=== PATIENT | female | born 1985 | race African-American/Black ===

== ENCOUNTER 2017-01-20 17:14 | Emergency (ER) | payer OTHER ==
[~2017-01-20] VITALS: Ht 167.6 cm; Wt 113.4 kg
[2017-01-20] MEDS ORDERED: IV NORMAL SALINE 1000ML BAG 1,000 ML IV ONE (18:00)
[2017-01-20 18:12] LABS: BASO % 0 % (0-3); EOS % 0 % (0-3); HEMATOCRIT 36.1 % (36.0-47.0); HEMOGLOBIN 11.8 g/dL (12.0-15.5); LYMPH # 1.1 x10^3/uL (1.0-4.8); LYMPH % 11 % (24-48); MEAN CORPUSCULAR HEMOGLOBIN 27 pg (25-35); MEAN CORPUSCULAR HGB CONC 33 g/dL (31-37); MEAN CORPUSCULAR VOLUME 81 fL (79-100); MONO % 7 % (0-9); NEUT % 82 % (31-73); PLATELET COUNT 189 x10^3/uL (140-400); RED BLOOD COUNT 4.45 x10^6/uL (3.50-5.40); RED CELL DISTRIBUTION WIDTH 14.4 % (11.5-14.5); WHITE BLOOD COUNT 10.4 x10^3/uL (4.0-11.0)
[2017-01-20 18:24] LABS: CALCIUM 9.3 mg/dL (8.5-10.1); CREATININE 0.9 mg/dL (0.6-1.0); GFR 97.6; POTASSIUM 3.6 mmol/L (3.5-5.1)
[2017-01-20] MEDS ORDERED: KETOROLAC 30 MG/ML INJ. IV ONE (18:30)
--- NOTE | 2017-01-20 19:23 | RAD ---
Pelvic ultrasound Clinical Indication:PELVIC PAIN BLEEDING AFTER TAKING 01-09-17, PT STATE SHE WAS [address] . TRANSABDOMINAL SCAN Uterus measures about 9.9 cm longitudinal by 4.6 cm AP by 6.5 cm wide. Right and left ovaries are not visualized. TRANSVAGINAL SCAN Uterus: 10.1 cm longitudinal by 4.8 cm AP by 5.6 cm wide. Endometrial stripe measures 17 mm in thickness. The endometrium is diffusely echogenic. Right ovary: 4.0 cm long axis with positive blood flow. Left ovary: Not visualized. Free fluid: None visualized. IMPRESSION: 1. Mild echogenic thickening of the endometrium. This could indicate endometrial hemorrhage or endometritis. Endometrial mass is difficult to exclude. Therefore, consider short-term follow-up sonography depending on clinical management. 2. Nonvisualized left ovary. Electronically signed by: Serge Vázquez MD (01/20/2017 7:19 PM) [id number]
--- NOTE | 2017-01-20 20:56 | PHYS DOC ---
Past Medical History Past Medical History: No Pertinent History Past Surgical History: No Surgical History Alcohol Use: None Drug Use: Marijuana Adult General Chief Complaint Chief Complaint: PELVIC PAIN HPI HPI Patient is a 21 year old female who drove herself to the ED. Patient states that on January 09 she was seen at [facility] for a medical . She was told that she was 9 weeks. She was given the " pill" on the and then took the 4 pills as instructed on the . That evening, she started bleeding. She has been bleeding since January 10. Her bleeding has been heavier than a period. She's had pelvic pain and cramping during this time. No fever or chills. She feels weak and lightheaded. This was her first . Review of Systems Review of Systems Constitutional: Denies fever or chills , complains of weakness/lightheadedness GI: Positive nausea, negative vomiting : As in history of present illness Current Medications Current Medications Current Medications Medications (Trade) Dose Ordered Sig/Simón Start Time Stop Time Status Last Admin Dose Admin Azithromycin 250 ml @ 250 mls/hr 1X ONCE 01/20/17 21:00 01/20/17 21:59 01/20/17 21:05 250 MLS/HR Ceftriaxone Sodium 50 ml @ 100 mls/hr 1X ONCE 01/20/17 20:30 01/20/17 20:59 DC 01/20/17 20:36 100 MLS/HR Ketorolac Tromethamine (Toradol) 30 mg 1X ONCE 01/20/17 18:30 01/20/17 18:31 DC 01/20/17 18:29 30 MG Sodium Chloride 1,000 ml @ 1,000 mls/hr 1X ONCE 01/20/17 18:00 01/20/17 18:59 DC 01/20/17 18:28 1,000 MLS/HR Allergies Allergies Allergies Coded Allergies Type Severity Reaction Last Updated Verified No Known Drug Allergies 01/20/17 No Physical Exam Physical Exam Constitutional: Well developed, well nourished, no acute distress, non-toxic appearance. Alert, mentating normally, warm and dry, not tachycardic. HENT: Normocephalic, atraumatic, bilateral external ears normal, nose normal. [ ] Eyes: conjunctiva normal, no discharge. [] Neck: Normal range of motion, no stridor. [] Abdomen: Obese, Bowel sounds normal, soft, nondistended, no masses, no pulsatile masses. Tender to palpation across the lower abdomen and suprapubic. Pelvic Exam: External genitalia normal with blood present. Vaginal vault with moderate amount of blood. Cervix appears normal. Blood at the os. Bimanual with positive cervical motion tenderness. Uterus is tender to palpation. No adnexal tenderness or masses. Skin: Warm, dry, no erythema, no rash. [] Extremities: No tenderness, no cyanosis, no clubbing, ROM intact, no edema. [] Neurologic: Alert and oriented X 3, normal motor function, no focal deficits noted. [] Current Patient Data Vital Signs Vital Signs Date Time Temp Pulse Resp B/P (MAP) Pulse Ox O2 Delivery O2 Flow Rate FiO2 01/20/17 20:59 64 20 138/85 (102) 100 Room Air 01/20/17 17:15 98.4 98.4 Lab Values Laboratory Tests Test 01/20/17 16:35 01/20/17 17:40 POC Urine HCG, Qualitative Hcg positive (Negative) White Blood Count 10.4 x10^3/uL (4.0-11.0) Red Blood Count 4.45 x10^6/uL (3.50-5.40) Hemoglobin 11.8 g/dL (12.0-15.5) L Hematocrit 36.1 % (36.0-47.0) Mean Corpuscular Volume 81 fL (79-100) Mean Corpuscular Hemoglobin 27 pg (25-35) Mean Corpuscular Hemoglobin Concent 33 g/dL (31-37) Red Cell Distribution Width 14.4 % (11.5-14.5) Platelet Count 189 x10^3/uL (140-400) Neutrophils (%) (Auto) 82 % (31-73) H Lymphocytes (%) (Auto) 11 % (24-48) L Monocytes (%) (Auto) 7 % (0-9) Eosinophils (%) (Auto) 0 % (0-3) Basophils (%) (Auto) 0 % (0-3) Neutrophils # (Auto) 8.6 x10^3uL (1.8-7.7) H Lymphocytes # (Auto) 1.1 x10^3/uL (1.0-4.8) Monocytes # (Auto) 0.8 x10^3/uL (0.0-1.1) Eosinophils # (Auto) 0.0 x10^3/uL (0.0-0.7) Basophils # (Auto) 0.0 x10^3/uL (0.0-0.2) Sodium Level 142 mmol/L (136-145) Potassium Level 3.6 mmol/L (3.5-5.1) Chloride Level 106 mmol/L (98-107) Carbon Dioxide Level 27 mmol/L (21-32) Anion Gap 9 (6-14) Blood Urea Nitrogen 7 mg/dL (7-20) Creatinine 0.9 mg/dL (0.6-1.0) Estimated GFR (Cockcroft-Gault) 97.6 Glucose Level 84 mg/dL (70-99) Calcium Level 9.3 mg/dL (8.5-10.1) Laboratory Tests 01/20/17 17:40 Laboratory Tests 01/20/17 17:40 EKG EKG [] Radiology/Procedures Radiology/Procedures Pelvic ultrasound read by the radiologist. No IUP seen. Mild echogenic thickening of the endometrium.[] Course & Med Decision Making Course & Med Decision Making Pertinent Labs and Imaging studies reviewed. (See chart for details) 21-year-old female who underwent a "medical " on January 09 and is continuing to have moderately heavy bleeding. Today, she is not tachycardic. She is not toxic in appearance. She is not anemic. No leukocytosis. Pelvic ultrasound is nonspecific and does not show IUP. Pelvic exam showing cervical motion tenderness and uterus tenderness. I believe the patient likely has completed her but may have some endometritis causing some continued bleeding and pain. I discussed the case with Dr. Newman, SALES ACCOUNT DIRECTOR information systems security developer, who agrees with the plan. I gave the patient a dose of IV Rocephin and IV azithromycin. See instructions for plan. [] Dragon Disclaimer Dragon Disclaimer This electronic medical record was generated, in whole or in part, using a voice recognition dictation system. Departure Departure Impression: Primary Impression: Vaginal bleeding, abnormal Disposition: HOME, SELF-CARE Condition: STABLE Referrals: JOSE MARTIN RUIZ MD (PCP) ROMULO NEWMAN Jr, MD Patient Instructions: Endometritis Additional Instructions: Today, ultrasound did not show any sac remaining in your uterus. It appears that your was complete. However, I believe you may have infection of the lining of your uterus. This is because it appears thickened on ultrasound and also you have tenderness on exam of your cervix and uterus. We will treat this with antibiotics. You were given a dose of IV Rocephin and IV azithromycin here in the emergency department. For pain, ibuprofen 800 mg every 6-8 hours. This will also help with the cramping and bleeding. Call [facility] at [facility]. Ask if they can get you in right away since you are having more pain and bleeding than expected. I also gave you the name and phone number of a SALES ACCOUNT DIRECTOR specialist here at [place] that you can follow up with if needed. If you have a fever 100.4 or higher, return to emergency. MIRANDA ISRAEL MD Jan 20, 2017 20:56
[2017-01-20] MEDS ORDERED: AZITHRMYCN 500MG IVPB FOR OMNI 250 ML IV ONE (21:00)
[2017-01-20 21:29] VITALS: BP 106/55
== END 2017-01-20 22:34 | disposition home or self-care (01) ==
LOC: EDBD 17:14 → ER 17:14
DX: O04.6 Delayed or excessive hemorrhage following (induced) termination of pregnancy (principal)
CPT/HCPCS: 36415; 76830; 76856; 80048; 81025; 85025; 86900; 86901; 87491; 87591; 96361; 96365; 96368; 96375; 99285; J0456; J0690; J1885; J7030